=== PATIENT | male | born 1945 | race Caucasian/White ===

== ENCOUNTER → 2019-06-08 07:53 | Outpatient (CLI) | payer MEDICARE, OTHER ==
--- NOTE | ~2019-06-08 | ST ---
PATIENT:BLAISE TRUONG MEDICAL RECORD: [id number] SEX: M LOCATION:[facility] ORDER #: ADMISSION DATE: 06/08/19 AGE OF PATIENT: 73 REFERRING PHYSICIAN: INTERPRETING PHYSICIAN: VAN BRADFORD MD DATE OF SERVICE: 06/08/2019 PROCEDURE: Nuclear stress test. INDICATION: Angina, shortness of breath, hypertension and hyperlipidemia. TECHNIQUE: He was exercised on standard Lexiscan protocol with 30 mCi of sestamibi injected at peak stress. A 9 mCi used previously for rest images. FINDINGS: Gated SPECT reveals preserved ejection fraction at 72% with good wall motion and thickening and brightening throughout all segments. SPECT imaging Cardiolite was used as myocardial fusion agent. There is homogeneous uptake throughout all segments at rest and stress with no evidence of inducible ischemia or previous infarction. OVERALL IMPRESSION: 1. This is a normal nuclear stress test with no evidence of inducible ischemia or previous infarction. 2. Gated SPECT reveals a preserved ejection fraction at 72%. In this patient with ongoing symptomatology, the current scan does not suggest the presence of hemodynamically significant coronary artery disease. Evaluate noncardiac etiology of chest pain. TRANSINT:[id number] Voice Confirmation ID: [id number] DOCUMENT ID: [id number] VAN BRADFORD MD CC: [id number] DICTATION DATE: 06/10/19 1529 SQUEEZER OPERATOR: 06/11/19 0038 [facility] CLI 06/08/19 [place] [id number] [place] [id number]
--- NOTE | ~2019-06-08 | EC ---
PATIENT:BLAISE TRUONG DATE OF SERVICE: 06/08/19 SEX: M MEDICAL RECORD: [id number] DATE OF : 47 [facility] AGE [facility] PATIENT: 73 ADMISSION DATE: 06/08/19 REFERRING PHYSICIAN: INTERPRETING PHYSICIAN: VAN HAGER MD ECHOCARDIOGRAM REPORT ECHO CHARGES 4 ECHO COMPLETE Date: 06/08/19 CLINICAL DIAGNOSIS: ANGINA/SOB/CHOE/MURMUR H/O HTN ECHOCARDIOGRAPHIC MEASUREMENTS (adult normal given) AC root (d.<3.7cm) 3.8 cm LV Septum d (<1.2 cm> 1.4 cm Valve Excursion 1.8 cm LV Septum (systole) 1.9 cm Left Atria (s.<4.0cm> 3.4 cm LVPW d(<1.2cm) 1.2 cm RV (d.<2.3cm) 2.5 cm LVPW (sytole) 1.7 cm LV diastole(<5.6CM) 4.4 cm MV E-F(>70mm/sec) cm LV systole 2.5 cm LVOT Diameter 1.8 cm MV exc.(>10mm) cm Est.ejection fraction (50-75%) % DOPPLER: LVIT cm/sec A 62.0 cm/sec E 88.0 cm/sec LA cm/sec RVSP mmHg LVOT 106 cm/sec AOP1/2T m/s Asc. Ao 127 cm/sec RVOT 68.0 cm/sec RA cm/sec PA 111 cm/sec AV Gradient Peak 6.5 mmHg AV Mean 3.3 mmHg AV Area 2.0 cm MV Gradient Peak 3.9 mmHg MV Mean 1.6 mmHg MV Area cm COMMENTS: OP - HC Religious Ritual Slaughterer: Doris [place] Residential Leasing Agent: 1 Dr. Hager TAPE# PACS Pericardial Effusion N DATE OF SERVICE: 06/08/2019 FINDINGS: 1. Left ventricular chamber size is within normal limits. Left ventricular systolic function is normal. Overall ejection fraction is estimated at 55%. 2. Left atrium is within normal limits at 3.4 cm. Right atrium and right ventricular chamber sizes are as well within normal limit. 3. Left ventricular hypertrophy is present, concentric with no evidence of outflow tract hypertrophy. 4. Valvular structures have normal structure and motion. ECHOCARDIOGRAM REPORT [id number] TRUONG,BLAISE 5. Doppler interrogation reveals no significant valvular insufficiency or stenosis. 6. No evidence of pericardial effusion or left ventricular thrombus. TRANSINT:[id number] Voice Confirmation ID: [id number] DOCUMENT ID: [id number] VAN HAGER MD CC: [id number] DICTATION DATE: 06/08/19 1449 HUMAN [employer] HR GENERALIST: 06/08/19 1551 [facility] [address] [place] [id number]
== END | disposition home or self-care (01) ==
LOC: D.HCCARDIO 07:53
PROVIDERS: ATTEND Internal Medicine Interventional Cardiology
DX: I20.9 Angina pectoris, unspecified (principal); R06.02 Shortness of breath; I10 Essential (primary) hypertension; E78.5 Hyperlipidemia, unspecified